=== PATIENT | male | born 1990 | race African-American/Black ===

== ENCOUNTER 2017-08-10 08:39 | Emergency (ER) | payer OTHER ==
[~2017-08-10 08:39] MED LIST: CIPRO250 M1 PO; ERYTHROMYCIN B500 MG PO; HYDROCODON-ACE1 EAC9 PO; LISINOPRIL10 MG PO; PHENERGAN DM1 ML DOB; VICODIN 5/500 T1 TAB PO; ZITHROMAX1 G/PKT PO
[2017-08-10] MEDS ORDERED: NO MEDICATIONS (08:45)
== END 2017-08-10 09:13 | disposition home or self-care (01) ==
LOC: SED 08:39
DX: S01.511A Laceration without foreign body of lip, initial encounter (principal); M79.672 Pain in left foot; J02.9 Acute pharyngitis, unspecified; F17.200 Nicotine dependence, unspecified, uncomplicated; Y33.XXXA Other specified events, undetermined intent, initial encounter; Y92.9 Unspecified place or not applicable
CPT/HCPCS: 99282